=== PATIENT | female | born 1970 | race Asian ===

== ENCOUNTER 2018-02-16 07:30 | Outpatient (CLI) | payer OTHER ==
--- NOTE | 2018-02-16 08:30 | Ultrasound Report ---
ULTRASOUND THYROID SCAN History: Palpable thyroid nodule. Technique: Grayscale ultrasound with color Doppler interrogation. Findings: No comparison. The thyroid gland is normal size, contour and echotexture. The right lobe measures 4.0 x 1.0 x 1.3 cm. The left lobe measures 3.9 x 1.2 x 1.2 cm. The thyroid isthmus measures 0.2 cm in thickness. There is a solitary 4 mm cyst at the inferior pole of the left thyroid lobe. No suspicious mass, calcifications or hyperemia. IMPRESSION: Essentially normal thyroid. 4 mm cyst at the inferior pole of the left thyroid lobe.
== END 2018-02-16 07:31 | disposition home or self-care (01) ==
LOC: US 07:30
PROVIDERS: ATTEND Preventive Medicine Public Health & General Preventive Medicine
DX: E04.1 Nontoxic single thyroid nodule (principal); E04.9 Nontoxic goiter, unspecified
CPT/HCPCS: 76536